=== PATIENT | male | born 1955 | race African-American/Black ===

== ENCOUNTER 2016-11-08 08:56 | Emergency (ER) | payer MEDICAID, OTHER ==
[~2016-11-08] VITALS: Ht 172.7 cm; Wt 87.0 kg
[~2016-11-08 08:56] MED LIST: CARI250T; FAMO20TA96; HYDR-3162; METO10TA3; QUET50TA11; RISP1
[2016-11-08 09:18] VITALS: BP 140/89
== END 2016-11-08 10:09 | disposition home or self-care (01) ==
LOC: ER 09:42
DX: M54.30 Sciatica, unspecified side (principal); K21.9 Gastro-esophageal reflux disease without esophagitis; Z88.6 Allergy status to analgesic agent; Z88.8 Allergy status to other drugs, medicaments and biological substances; Z79.899 Other long term (current) drug therapy
CPT/HCPCS: 99283

== ENCOUNTER 2016-11-21 07:42 | Emergency (ER) | payer MEDICAID, OTHER ==
[~2016-11-21] VITALS: Ht 172.7 cm; Wt 87.5 kg
[2016-11-21 08:49] VITALS: BP 140/103
== END 2016-11-21 10:47 | disposition home or self-care (01) ==
LOC: ER 09:30
DX: S93.491A Sprain of other ligament of right ankle, initial encounter (principal); F43.12 Post-traumatic stress disorder, chronic; M54.30 Sciatica, unspecified side; G89.29 Other chronic pain; X50.9XXA Other and unspecified overexertion or strenuous movements or postures, initial encounter; Z88.6 Allergy status to analgesic agent; Y92.89 Other specified places as the place of occurrence of the external cause; Y99.8 Other external cause status; Y93.89 Activity, other specified; Z88.8 Allergy status to other drugs, medicaments and biological substances
CPT/HCPCS: 73610; 73630; 99284

== ENCOUNTER 2019-09-18 08:30 | Emergency (ER) | payer OTHER ==
[~2019-09-18] VITALS: Ht 172.7 cm; Wt 82.0 kg
[~2019-09-18 08:30] MED LIST changes: +FAMO-135; -FAMO20TA96; +QUET50TA; -QUET50TA11
[2019-09-18 08:50] VITALS: BP 148/85
[2019-09-18] MEDS ORDERED: ACETAMINOPHEN 325MG TABLET PO ONE (10:45)
[2019-09-18 12:26] LABS: BASOPHILS % 1.2 % (0.0-2.0); EOSINOPHILS % 3.1 % (0.0-5.0); HEMATOCRIT. 42.4 % (42.0-52.0); HEMOGLOBIN. 14.5 g/dL (14.0-18.0); LYMPHOCYTES % 27.5 % (20.0-50.0); MEAN CORPUSCULAR HEMOGLOBIN 33.2 pg (28.0-32.0); MEAN CORPUSCULAR VOLUME 97.2 fL (80.0-94.0); MEAN PLATELET VOLUME 9.4 fl (7.4-10.4); MONOCYTES % 9.8 % (2.0-8.0); NEUTROPHILS % 58.4 % (40.0-76.0); PLATELET 227 x1000/uL (130-400); RED BLOOD CELL COUNT 4.36 mill/uL (4.7-6.1); RED CELL DISTRIBUTION WIDTH 14.2 % (11.6-14.6)
== END 2019-09-18 13:03 | disposition home or self-care (01) ==
LOC: ER 08:30
DX: L98.8 Other specified disorders of the skin and subcutaneous tissue (principal); M54.30 Sciatica, unspecified side; Z88.6 Allergy status to analgesic agent
CPT/HCPCS: 36415; 73130; 73590; 85025; 99284

== ENCOUNTER 2022-12-05 08:32 | Emergency (ER) | payer MEDICARE, MEDICAID ==
[~2022-12-05] VITALS: Ht 172.7 cm; Wt 82.0 kg
[2022-12-05 09:05] VITALS: BP 132/80
[2022-12-05] MEDS ORDERED: ASPIRIN 81MG TABLET PO ONE (09:15)
[2022-12-05 09:31] LABS: BASOPHILS % 0.4 % (0.0-2.0); EOSINOPHILS % 1.9 % (0.0-5.0); HEMATOCRIT. 36.3 % (42.0-52.0); HEMOGLOBIN. 12.6 g/dL (14.0-18.0); LYMPHOCYTES % 26.1 % (20.0-50.0); MEAN CORPUSCULAR HEMOGLOBIN 33.9 pg (28.0-32.0); MEAN CORPUSCULAR VOLUME 97.3 fL (80.0-94.0); MEAN PLATELET VOLUME 8.2 fl (7.4-10.4); MONOCYTES % 12.1 % (2.0-8.0); NEUTROPHILS % 59.5 % (40.0-76.0); PLATELET 246 x1000/uL (130-400); RED BLOOD CELL COUNT 3.73 mill/uL (4.7-6.1); RED CELL DISTRIBUTION WIDTH 13.5 % (11.6-14.6)
[2022-12-05 09:37] LABS: CHLORIDE 102 mEq/L (98-107)
[2022-12-05] MEDS ORDERED: POTASSIUM CHLORIDE 20MEQ TABLET SR PO NR (10:00)
== END 2022-12-05 10:28 | disposition home or self-care (01) ==
LOC: ER 08:32
DX: M19.012 Primary osteoarthritis, left shoulder (principal); E87.6 Hypokalemia
CPT/HCPCS: 36415; 71045; 73030; 80053; 83880; 84484; 85025; 93005; 99285

== ENCOUNTER 2023-05-08 12:21 | Emergency (ER) | payer MEDICARE, MEDICAID ==
[~2023-05-08] VITALS: Ht 172.7 cm; Wt 81.6 kg
[2023-05-08 12:48] VITALS: TEMP 98.6; O2SAT 100
[2023-05-08 15:04] LABS: CHLORIDE 97 mEq/L (98-107); INDEX HEMOLYSI 3 (1-3); INDEX ICTERIC 2 (1-4); INDEX LIPEMIC 1 (1-3); POTASSIUM 3.1 mEq/L (3.5-5.1); SODIUM 130 mEq/L (136-145)
[2023-05-08 15:08] LABS: PROTHROMBIN TIME 11.1 sec (9.6-11.0)
[2023-05-08 15:09] LABS: HEMATOCRIT. 30.4 % (42.0-52.0); HEMOGLOBIN. 10.5 g/dL (14.0-18.0); MEAN CORPUSCULAR HEMOGLOBIN 34.3 pg (28.0-32.0); MEAN CORPUSCULAR HGB CONC 34.6 g/dL (31.0-37.0); MEAN CORPUSCULAR VOLUME 98.9 fL (80.0-94.0); MEAN PLATELET VOLUME 9.1 fl (7.4-10.4); PLATELET 137 x1000/uL (130-400); RED BLOOD CELL COUNT 3.07 mill/uL (4.7-6.1); RED CELL DISTRIBUTION WIDTH 16.2 % (11.6-14.6); WHITE BLOOD COUNT 11.3 x1000/uL (4.5-11.0)
[2023-05-08 15:13] LABS: ALANINE AMINOTRANSFERASE 78 IU/L (13-61); ALBUMIN 3.2 g/dL (3.4-5.0); ASPARTATE AMINOTRANSFERASE 65 IU/L (15-37); BILIRUBIN TOTAL 0.8 mg/dL (0.1-1.0); CALCIUM 8.5 mg/dL (8.5-10.1); CARBON DIOXIDE 21 mEq/L (21-32); CREATININE 0.8 mg/dL (0.6-1.3); GLUCOSE 119 mg/dL (70-105); PROTEIN TOTAL 7.4 g/dL (6.0-8.3); UREA NITROGEN BLOOD 7 mg/dL (7-21)
[2023-05-08 15:21] LABS: DIFFERENTIAL COMMENT 1
[2023-05-08 15:40] LABS: CLARITY URINE CLEAR (CLEAR); COLOR URINE YELLOW (YELLOW); GLUCOSE URINE NEGATIVE (NEGATIVE); KETONES URINE NEGATIVE (NEGATIVE); LEUKOCYTE ESTERASE URINE NEGATIVE (NEGATIVE); NITRITE URINE NEGATIVE (NEGATIVE); OCCULT BLOOD URINE NEGATIVE (NEGATIVE); PH URINE 6.5 (4.5-8.0); PROTEIN URINE NEGATIVE (NEGATIVE); SPECIFIC GRAVITY URINE 1.002 (1.005-1.030); UROBILINOGEN URINE 0.2 E.U./dL (0.2-1.0)
[2023-05-08] MEDS ORDERED: POTASSIUM CHLORIDE 20MEQ TABLET SR PO ONE (16:00)
[2023-05-08 16:28] LABS: PLATELET ESTIMATE NORMAL
[2023-05-08] MEDS: MAGNESIUM OXIDE 400MG TABLET PO SCH ×2 (16:47→20:13)
[2023-05-08] MEDS ORDERED: HYDROCODONE/ACETAMINOPHEN 5/325MG TABLET PO ONE (18:45)
[2023-05-08 19:05] VITALS: PULSE 97
[2023-05-08] MEDS ORDERED: LIDOCAINE 5% PATCH TOP STA (20:46)
[2023-05-08] MEDS ORDERED: METHOCARBAMOL 750MG TABLET PO SCH (21:00)
[2023-05-08] MEDS ORDERED: KETOROLAC 60MG/2ML VIAL IM ONE (21:00)
[2023-05-08] MEDS ORDERED: TOPUD PO (21:09)
[2023-05-08] MEDS ORDERED: LIDO1ADH23 TP (21:09)
[2023-05-08 21:38] VITALS: BP 160/84; RESP 20
== END 2023-05-08 21:46 | disposition home or self-care (01) ==
LOC: ER 12:21
DX: M47.816 Spondylosis without myelopathy or radiculopathy, lumbar region (principal); F10.229 Alcohol dependence with intoxication, unspecified; Z87.891 Personal history of nicotine dependence; Z79.899 Other long term (current) drug therapy; Y90.0 Blood alcohol level of less than 20 mg/100 ml
CPT/HCPCS: 99284; 74176; 80053; 81003; 83690; 85025; 85610; 36415; J1885

== ENCOUNTER 2025-02-10 08:19 | Emergency (ER) | payer MEDICARE, MEDICAID ==
[~2025-02-10] VITALS: Ht 172.7 cm; Wt 91.0 kg
[~2025-02-10 08:19] MED LIST changes: -CARI250T; -FAMO-135; -HYDR-3162; +LIDO1ADH23 TP; -METO10TA3; +ONDA4TAB50 PO; +TOPUD PO
[2025-02-10 08:24] VITALS: O2SAT 99
[2025-02-10 08:42] LABS: BASOPHILS % 0.3 % (0.0-2.0); EOSINOPHILS % 1.1 % (0.0-5.0); HEMATOCRIT. 42.7 % (42.0-52.0); HEMOGLOBIN. 14.5 g/dL (14.0-18.0); LYMPHOCYTES % 19.8 % (20.0-50.0); MEAN CORPUSCULAR HEMOGLOBIN 32.6 pg (28.0-32.0); MEAN CORPUSCULAR VOLUME 95.8 fL (80.0-94.0); MEAN PLATELET VOLUME 8.5 fl (7.4-10.4); MONOCYTES % 7.9 % (2.0-8.0); NEUTROPHILS % 70.9 % (40.0-76.0); PLATELET 209 x1000/uL (130-400); RED BLOOD CELL COUNT 4.46 mill/uL (4.7-6.1); RED CELL DISTRIBUTION WIDTH 13.2 % (11.6-14.6); WHITE BLOOD COUNT 10.4 x1000/uL (4.5-11.0)
[2025-02-10 08:52] LABS: CHLORIDE 99 mEq/L (98-107); POTASSIUM 3.9 mEq/L (3.5-5.1); SODIUM 133 mEq/L (136-145)
[2025-02-10 08:53] LABS: CARBON DIOXIDE 22 mEq/L (21-32)
[2025-02-10 08:54] LABS: CALCIUM 9.6 mg/dL (8.7-10.4)
[2025-02-10 08:58] LABS: CREATININE 1.2 mg/dL (0.6-1.3); GLUCOSE 122 mg/dL (70-105); UREA NITROGEN BLOOD 10 mg/dL (9-23)
[2025-02-10] MEDS ORDERED: TRAMADOL HCL/ACETAMINOPHEN 37.5/325MG TABLET PO ONE (10:15)
[2025-02-10] MEDS: ACETAMINOPHEN 325MG TABLET PO SCH (10:32)
[2025-02-10 13:08] LABS: CLARITY URINE CLEAR (CLEAR); COLOR URINE YELLOW (YELLOW); GLUCOSE URINE NEGATIVE (NEGATIVE); KETONES URINE NEGATIVE (NEGATIVE); LEUKOCYTE ESTERASE URINE TRACE (NEGATIVE); NITRITE URINE NEGATIVE (NEGATIVE); OCCULT BLOOD URINE TRACE (NEGATIVE); PH URINE 5.5 (4.5-8.0); PROTEIN URINE NEGATIVE (NEGATIVE); SPECIFIC GRAVITY URINE 1.006 (1.005-1.030); UROBILINOGEN URINE 0.2 E.U./dL (0.2-1.0)
[2025-02-10 13:18] LABS: BACTERIA URINE NONE SEEN; RBC URINE 0-2 /hpf (0-2); SQUAMOUS EPITHELIAL CELL URINE 1+ /lpf (RARE/1+); WBC URINE 0-2 /hpf (0-2); YEAST URINE NONE SEEN
[2025-02-10 13:29] VITALS: BP 143/89; PULSE 68; RESP 16; TEMP 36.7; O2SAT 97
== END 2025-02-10 13:32 | disposition home or self-care (01) ==
LOC: ER 08:19
DX: R10.12 Left upper quadrant pain (principal); Z88.5 Allergy status to narcotic agent; Z88.6 Allergy status to analgesic agent; Z79.899 Other long term (current) drug therapy
CPT/HCPCS: 36415; 80048; 81003; 85025; 99283

== ENCOUNTER 2025-02-22 08:33 | Emergency (ER) | payer MEDICARE, MEDICAID ==
[~2025-02-22] VITALS: Ht 172.7 cm; Wt 81.0 kg
[2025-02-22 08:55] VITALS: O2SAT 99
[2025-02-22 09:35] LABS: CLARITY URINE CLEAR (CLEAR); COLOR URINE YELLOW (YELLOW); GLUCOSE URINE NEGATIVE (NEGATIVE); KETONES URINE NEGATIVE (NEGATIVE); LEUKOCYTE ESTERASE URINE NEGATIVE (NEGATIVE); NITRITE URINE NEGATIVE (NEGATIVE); OCCULT BLOOD URINE NEGATIVE (NEGATIVE); PH URINE 5.5 (4.5-8.0); PROTEIN URINE NEGATIVE (NEGATIVE); SPECIFIC GRAVITY URINE 1.007 (1.005-1.030); UROBILINOGEN URINE 0.2 E.U./dL (0.2-1.0)
[2025-02-22] MEDS ORDERED: MUPI15CR11 TP (11:24)
[2025-02-22 11:36] VITALS: BP 163/98; PULSE 66; RESP 14; TEMP 36.9; O2SAT 100
== END 2025-02-22 12:52 | disposition home or self-care (01) ==
LOC: ER 09:01
DX: N43.3 Hydrocele, unspecified (principal); N48.89 Other specified disorders of penis; N45.3 Epididymo-orchitis; Z79.899 Other long term (current) drug therapy; Z88.5 Allergy status to narcotic agent; Z88.6 Allergy status to analgesic agent
CPT/HCPCS: 76870; 81003; 87491; 87591; 93976; 99284